=== PATIENT | female | born 1935 | race Caucasian/White ===

== ENCOUNTER 2016-08-04 15:46 | Emergency (ER) | payer MEDICAID ==
[~2016-08-04] VITALS: Ht 154.9 cm; Wt 63.5 kg
[~2016-08-04 15:46] MED LIST: ASPIR 8181 M1 PO; ASPIRIN ADULT L81 M1; ASPIRIN81 M1 PO; CIPRO500 MG PO; ENALAPRIL; FENOFIBRATE145 MG PO; GLIPIZIDE5 MG PO; GLUCOPHAGE1000 MG PO; LANTUS INS100 UNITS/ SUBQ; LISINOPRIL2.5 M1 PO; METFORMIN1000 MG PO; METFORMIN500 MG PO; MULTI VITAMINS1 TAB PO; REGULAR INSULIN SC; SYNTHROID0.05 M1; SYNTHROID0.05 MG PO
[2016-08-04 15:49] VITALS: BP 141/73
[2016-08-04] MEDS ORDERED: NACL 0.9% 1,000 ML IV SCH (15:57)
[2016-08-04] MEDS ORDERED: ACETAMINOPHEN 325 MG TAB PO ONE (16:00)
[2016-08-04] MEDS ORDERED: ACETAMINOPHEN 325 MG TAB ONE (16:01)
--- NOTE | 2016-08-04 16:17 | NUR ---
PT TO BED 4
--- NOTE | 2016-08-04 16:19 | NUR ---
DR. RICHARDS PRESENT AT BEDSIDE.
--- NOTE | 2016-08-04 16:20 | NUR ---
PATIENT PRESENTS TO ED WITH FEVER . PT STATES SHE IS HAVING BODY ACHES. DENIES N/V/D; SKIN IS PINK/WARM/DRY; AAOX4 WITH EVEN AND STEADY GAIT; LUNGS CLEAR BL; HR EVEN AND REGULAR; PT DENIES ANY FEVER, CP, SOB, OR COUGH AT THIS TIME; PATIENT STATES PAIN OF 10/10 AT THIS TIME; VSS; PATIENT POSITIONED FOR COMFORT; HOB ELEVATED; BEDRAILS UP X2; BED DOWN. ER MD MADE AWARE OF PT STATUS.
[2016-08-04] MEDS ORDERED: NACL 0.9% 1,000 ML IV ONE (17:05)
--- NOTE | 2016-08-04 17:05 | NUR ---
PT'S DAUGHTER PRESENT AT BEDSIDE.
[2016-08-04] MEDS ORDERED: cefTRIAXone 1,000 MG VIAL ONE (17:26)
--- NOTE | 2016-08-04 18:51 | NUR ---
Patient discharged with v/s stable. Written and verbal after care instructions given and explained. Patient alert, oriented and verbalized understanding of instructions. Wheel Chair Assisted with by caregiver. All questions addressed prior to discharge. ID band removed. Patient advised to follow up with PMD. Rx of TYLENOL AND AMOXICILLIN given. Patient educated on indication of medication including possible reaction and side effects. Opportunity to ask questions provided and answered.
[2016-08-04 18:57] VITALS: BP 101/56
== END 2016-08-04 18:36 | disposition home or self-care (01) ==
LOC: MED 15:46
DX: B34.9 Viral infection, unspecified (principal); E11.9 Type 2 diabetes mellitus without complications; I10 Essential (primary) hypertension; Z79.82 Long term (current) use of aspirin
CPT/HCPCS: 36415; 71010; 80053; 81001; 82150; 82553; 82948; 83605; 83690; 83880; 84484; 85025; 85379; 85610; 85730; 87040; 87086; 93005; 96365; 99285; J0696; J7030; J7060; Q0092

== ENCOUNTER 2017-01-11 15:23 | Inpatient (IN) | payer MEDICAID ==
[~2017-01-11] VITALS: Ht 157.5 cm; Wt 54.4 kg
[~2017-01-11 15:23] MED LIST changes: +ASPI81EC98 PO; -ASPIR 8181 M1 PO; -ASPIRIN ADULT L81 M1; -ASPIRIN81 M1 PO; +CIPR500T4 PO; -CIPRO500 MG PO; -ENALAPRIL; +FENO145T18 PO; -FENOFIBRATE145 MG PO; -GLIPIZIDE5 MG PO; -GLUCOPHAGE1000 MG PO; -LANTUS INS100 UNITS/ SUBQ; +LISI2.5T5 PO; -LISINOPRIL2.5 M1 PO; +METF100028 PO; -METFORMIN1000 MG PO; -METFORMIN500 MG PO; -MULTI VITAMINS1 TAB PO; -REGULAR INSULIN SC; +SYN.05 PO; -SYNTHROID0.05 M1; -SYNTHROID0.05 MG PO
[2017-01-11 15:27] VITALS: BP 95/53
--- NOTE | 2017-01-11 15:36 | NUR ---
Pt w/c assisted to bed 3.
[2017-01-11] MEDS ORDERED: CALC-1086 PO (16:09)
[2017-01-11] MEDS ORDERED: LANTUS SUBQ (16:09)
[2017-01-11] MEDS ORDERED: NACL 0.9% 1,000 ML IV SCH (16:16)
[2017-01-11] MEDS ORDERED: KETOROLAC 15 MG/ML VIAL IVP ONE (16:20)
--- NOTE | 2017-01-11 16:24 | NUR ---
PATIENT PRESENTS TO ED WITH GENERALIZED WEAKNESS AND ACHES---FULL CLEAR SPEECH, NO FACIAL ASYMMETRY, . PT STATES . DENIES N/V/D; SKIN IS PINK/WARM/DRY; AAOX4 WITH EVEN AND STEADY GAIT; LUNGS CLEAR BL; HR EVEN AND REGULAR; PT DENIES ANY FEVER, CP, SOB, OR COUGH AT THIS TIME; PATIENT STATES PAIN OF 5/10 AT THIS TIME; VSS; PATIENT POSITIONED FOR COMFORT; HOB ELEVATED; BEDRAILS UP X2; BED DOWN. ER MD MADE AWARE OF PT STATUS.
--- NOTE | 2017-01-11 16:33 | NUR ---
RT AT BEDSIDE DRAWING ABG
[2017-01-11 16:34] LABS: HEMATOCRIT 32.6 % (36-48); HEMOGLOBIN 10.9 g/dL (12.0-16.0); MEAN CORPUSCULAR HEMOGLOBIN 27 pg (27-31); MEAN CORPUSCULAR HGB CONC 33 g/dL (33-37); MEAN CORPUSCULAR VOLUME 81 fL (80-94); PLATELET COUNT (AUTO) 190 K/uL (140-450); RED BLOOD CELL COUNT(AUTO) 4.05 MIL/uL (4.20-5.40); RED CELL DISTRIBUTION WIDTH 15.2 % (11.6-13.7); WHITE BLOOD COUNT (AUTO) 18.9 K/uL (4.8-10.8)
[2017-01-11 16:53] LABS: ANION GAP 11.7 (8-16); CARBON DIOXIDE 26.7 mmol/L (21-32); CHLORIDE 99 mmol/L (98-107); CREATININE 1.8 mg/dL (0.6-1.3); EOSINOPHILS % (MANUAL) 1 % (0-4); GLUCOSE 218 mg/dL (74-106); LYMPHOCYTES % (MANUAL) 4 % (20-46); MONOCYTES % (MANUAL) 1 % (5-12); POTASSIUM 4.4 mmol/L (3.5-5.1); SODIUM SERUM 133 mmol/L (136-145); UREA NITROGEN, BLOOD 31 mg/dL (7-18)
[2017-01-11 16:56] LABS: PROTHROMBIN TIME 11.5 secs (10.8-13.4)
[2017-01-11 17:08] LABS: ASPARTATE AMINOTRANSFERASE 21 U/L (15-37); TOTAL BILIRUBIN 0.5 mg/dL (0.0-1.0)
[2017-01-11 17:23] LABS: APPEARANCE,URINE CLEAR (CLEAR); BILIRUBIN,URINE NEGATIVE (NEGATIVE); BLOOD, URINE NEGATIVE (NEGATIVE); COLOR,URINE YELLOW (YELLOW); LEUKOCYTE ESTERASE ,URINE NEGATIVE (NEGATIVE); NITRITE, URINE NEGATIVE (NEGATIVE); UGLUCOSE TRACE (NEGATIVE)
[2017-01-11 17:27] LABS: RBC,URINE 0-3 /HPF (0-5); WBC,URINE 0-3 /HPF (0-5)
[2017-01-11] MEDS ORDERED: PIPERACILLIN/TAZOBACTAM 3.375 GM in DEXTROSE 5% 50 ML IV ONE (17:40)
[2017-01-11] MEDS ORDERED: PIPERACILLIN/TAZOBACTAM 3.375 GM VIAL IV ONE (17:55)
--- NOTE | 2017-01-11 18:20 | NUR ---
PT TAKEN TO RESTROOM VIA WHEELCHAIR BY FAMILY----PT APPEARS MORE ALERT AND INTERACTIVE
--- NOTE | 2017-01-11 18:26 | NUR ---
PT RETURNED FROM RESTROOM
[2017-01-11] MEDS ORDERED: NACL 0.9% 500 ML IV ONE (18:55)
--- NOTE | 2017-01-11 19:11 | NUR ---
RESTING WITH OU CLOSED, NO S/S RESP DISTRESS---FAMILY REMAINS AT BEDSIDE PT AWAITS AVAILABLE ROOM FOR ADMISSION
--- NOTE | 2017-01-11 19:14 | NUR ---
GOT REPORT FROM KATERINA GIRON. PT. RESTING IN BED, NO S/SX OF DISTRESS AT THIS TIME.
[2017-01-11] MEDS ORDERED: MORPHINE SULFATE 2 MG/ML SYR IVP PRN (19:15)
[2017-01-11] MEDS ORDERED: HYDROcodone/APAP 7.5/325 MG 1 TAB PO PRN (19:15)
[2017-01-11] MEDS ORDERED: ONDANSETRON 4 MG/2 ML VIAL IM/IVP PRN (19:15)
[2017-01-11] MEDS ORDERED: DOCUSATE SODIUM 100 MG GELCAP PO PRN (19:15)
[2017-01-11] MEDS ORDERED: ACETAMINOPHEN 325 MG TAB PO PRN (19:15)
--- NOTE | 2017-01-11 20:00 | NUR ---
Patient will be admitted to care of DR. GUADARRAMA. Admited to TELEMETRY. Will go to room 114. Belongings list completed. Report to KATERINA AGUIRRE.
--- NOTE | 2017-01-11 20:05 | NUR ---
ADMITTED PATIENT TO TELE UNIT. PATIENT AWAKE, ALERT, ORIENTED X4. NOT S/S OF ACUTE DISTRESS NOTED, RESPIRATION EVEN AND UNLABORED, FAMILY MEMBERS AT BEDSIDE. PATIENT DENIES PAIN AT THIS TIME. FLUSHED IV WITH 10ML NS, PATENT AND INTACT. TELE MONITOR PLACED ON PATIENT. CALL LIGHT WITHIN REACH, SAFETY MEASURE ENSURED, WILL CONTINUE TO MONITOR.
[2017-01-11 20:10] VITALS: BP 141/73
[2017-01-11 20:11] LABS: MAGNESIUM 1.7 mg/dL (1.8-2.4); PHOSPHORUS 2.9 mg/dL (2.5-4.9); THYROID STIMULATING HORMONE 2.28 uIU/mL (0.34-3.74)
[2017-01-11] MEDS ORDERED: MECLIZINE 25 MG TAB PO ONE (21:10)
[2017-01-11] MEDS: CIPROFLOXACIN 250 MG TAB PO SCH (21:10)
[2017-01-11] MEDS: NACL 0.9% 1,000 ML IV SCH (21:11)
[2017-01-11] MEDS: BLOOD GLUCOSE MONITORING 1 DEV DEV FS SCH (21:13)
[2017-01-11] MEDS ORDERED: MAG SULF 2000 MG/WATER PREMIX 100 ML IV SCH (21:15)
[2017-01-11] MEDS: INSULIN LISPRO SLIDING SCALE 100 UNITS/ML VIAL SUBQ PRN (21:19)
[2017-01-11] MEDS ORDERED: FERRIC GLUCONATE 125 MG in NACL 0.9% 100 ML IV SCH ×2 (21:20→21:30)
--- NOTE | 2017-01-11 22:05 | NUR ---
DR. ARTHUR IS OKAY TO START [facility] TOMORROW
[2017-01-11] MEDS ORDERED: MECLIZINE 25 MG TAB PO PRN (23:00)
[2017-01-12] VITALS: BP 138/70
--- NOTE | 2017-01-12 00:15 | NUR ---
SECOND BAG OF 2G MAGNESIUM SULFATE STARTED, PATIENT TOLERATED WELL.
--- NOTE | 2017-01-12 02:10 | NUR ---
PATIENT SLEEPING IN BED, NO S/S OF ACUTE DISTRESS NOTED, RESPIRATION EVEN AND UNLABORED, CALL LIGHT WITHIN REACH, SAFETY MEASURE ENSURED, WILL CONTINUE TO MONITOR.
[2017-01-12 04:00] VITALS: BP 124/58
--- NOTE | 2017-01-12 04:11 | NUR ---
PATIENT SLEEPING IN BED, NO S/S OF ACUTE DISTRESS NOTED, RESPIRATION EVEN AND UNLABORED, EASY TO AROUSE, CALL LIGHT WITHIN REACH, SAFETY MEASURE ENSURED, WILL CONTINUE TO MONITOR.
[2017-01-12 06:20] LABS: T4 (THYROXINE) 6.2 ug/dL (4.5-12.0)
--- NOTE | 2017-01-12 06:30 | NUR ---
ASSISTED PATIENT TO THE RESTROOM. PATIENT VOID X1. PATIENT RESTING IN BED NOW. NO S/S OF ACUTE DISTRESS NOTED. WILL CONTINUE TO MONITOR.
[2017-01-12] MEDS: BLOOD GLUCOSE MONITORING 1 DEV DEV FS SCH ×4 (06:45→21:01)
[2017-01-12] MEDS: INSULIN LISPRO SLIDING SCALE 100 UNITS/ML VIAL SUBQ PRN ×4 (06:46→21:06)
[2017-01-12 06:50] LABS: HEMATOCRIT 26.4 % (36-48); HEMOGLOBIN 8.8 g/dL (12.0-16.0); MEAN CORPUSCULAR HEMOGLOBIN 27 pg (27-31); MEAN CORPUSCULAR HGB CONC 33 g/dL (33-37); MEAN CORPUSCULAR VOLUME 80 fL (80-94); PLATELET COUNT (AUTO) 154 K/uL (140-450); RED CELL DISTRIBUTION WIDTH 15.4 % (11.6-13.7); WHITE BLOOD COUNT (AUTO) 10.9 K/uL (4.8-10.8)
[2017-01-12] MEDS: NACL 0.9% 1,000 ML IV SCH ×2 (06:53→18:28)
[2017-01-12 07:03] LABS: ANION GAP 8.4 (8-16); CARBON DIOXIDE 25.4 mmol/L (21-32); CHLORIDE 105 mmol/L (98-107); CREATININE 1.5 mg/dL (0.6-1.3); GLUCOSE 197 mg/dL (74-106); POTASSIUM 3.8 mmol/L (3.5-5.1); SODIUM SERUM 135 mmol/L (136-145); UREA NITROGEN, BLOOD 29 mg/dL (7-18)
[2017-01-12 07:12] LABS: MAGNESIUM 3.3 mg/dL (1.8-2.4); PHOSPHORUS 2.7 mg/dL (2.5-4.9)
[2017-01-12 07:18] LABS: EOSINOPHILS % (MANUAL) 2 % (0-4); LYMPHOCYTES % (MANUAL) 10 % (20-46)
[2017-01-12 07:20] LABS: MONOCYTES % (MANUAL) 3 % (5-12)
--- NOTE | 2017-01-12 07:45 | NUR ---
ENDORSED PLAN OF CARE TO DAY RN. PATIENT RESTING IN BED IN STABLE CONDITION, RESPIRATION EVEN AND UNLABORED. NO S/S OF ACUTE DISTRESS NOTED.
--- NOTE | 2017-01-12 07:46 | NUR ---
RECEIVED PT FROM BRIDGETTE BORGES AT BEDSIDE. PT IS SITTING UP AT EDGE OF BED. EDUCATED PT TO CALL NURSE FOR HELP WHEN GOING TO BATHROOM. PT VERBALIZED UNDERSTANDING. PT IS A&OX3. PT HAS IV ON L AC 20G RUNNING NS@86. PT DENIES PAIN. CALL LIGHT WITHIN REACH. WILL CONTINUE TO MONITOR.
[2017-01-12 08:00] VITALS: BP 111/61
[2017-01-12] MEDS ORDERED: ASPIRIN 81 MG TAB.CHEW PO ONE (09:00)
[2017-01-12] MEDS ORDERED: INSULIN GLARGINE SUBQ SCH (09:00)
[2017-01-12] MEDS ORDERED: FERRIC GLUCONATE 125 MG in NACL 0.9% 100 ML IV SCH (09:00)
--- NOTE | 2017-01-12 09:30 | NUR ---
PT IS RESTING COMFORTABLY IN BED. NO DISTRESS NOTED. CALL LIGHT WITHIN REACH. WILL CONTINUE TO MONITOR.
[2017-01-12] MEDS: FENOFIBRATE 48 MG TAB PO SCH (09:41)
[2017-01-12] MEDS: ATORVASTATIN 20 MG TAB PO SCH (09:42)
[2017-01-12] MEDS: LISINOPRIL 5 MG TAB PO SCH (09:42)
--- NOTE | 2017-01-12 09:53 | NUR ---
PATIENT HAS BEEN SCREENED AND CATEGORIZED HIGH NUTRITION RISK. PATIENT WILL BE SEEN WITHIN 1-2 DAYS OF ADMISSION. 01/12/17-01/13/[address]
--- NOTE | 2017-01-12 11:50 | NUR ---
BS CHECKED. VS CHECKED. PT IN STABLE CONDITION. FAMILY AT BEDSIDE. CALL LIGHT WITHIN REACH. WILL CONTINUE TO MONITOR.
[2017-01-12 12:00] VITALS: BP 111/62
--- NOTE | 2017-01-12 13:30 | NUR ---
PT IS RESTING COMFORTABLY IN BED. FAMILY AT BEDSIDE. CALL LIGHT WITHIN REACH. WILL CONTINUE TO MONITOR.
[2017-01-12 15:16] LABS: FERRITIN 74 ng/mL (15-150); TRANSFERRIN 229 mg/dL (200-370)
--- NOTE | 2017-01-12 15:30 | NUR ---
PT TOOK A WALK IN HALLWAY. TOLERATED WELL. CALL LIGHT WITHIN REACH. WILL CONTINUE TO MONITOR.
[2017-01-12 16:00] VITALS: BP 141/71
--- NOTE | 2017-01-12 16:17 | NUR ---
01/12/17 RD INITIAL ASSESSMENT COMPLETED PLEASE REFER TO NUTRITION ASSESSMENT UNDER CARE ACTIVITY FOR ESTIMATED NUTRITIONAL NEEDS. RD RECOMMENDATIONS: 1. CONTINUE CCHO 60 GM TOLERATED -NOTE PT WITH VERY GOOD APPETITE, FINISHING 90-100% OF HER MEALS TODAY. 2. RD PROVIDED VERBAL DM DIET EDUCATION TO PTS FAMILY MEMBERS. 3. RD WILL F/U 7 DAYS; LOW RISK. JOSE HOLLINGSWORTH, RD
--- NOTE | 2017-01-12 17:31 | NUR ---
FAMILY AT BEDSIDE. PT IN STABLE CONDITION. CALL LIGHT WITHIN REACH. WILL CONTINUE TO MONITOR.
--- NOTE | 2017-01-12 19:21 | NUR ---
ENDORSED CARE OF PT TO PAULA BORGES AT BEDSIDE. PT IN STABLE CONDITION.
--- NOTE | 2017-01-12 19:22 | NUR ---
RECEIVED PATIENT REPORT AT BEDSIDE. PATIENT AWAKE, ALERT, AND ORIENTED. NO SIGNS AND SYMPTOMS OF DISTRESS NOTED. NO COMPLAINTS OF PAIN AT THIS TIME. PATIENT'S FAMILY IS PRESENT AT BEDSIDE. IV SITE NOTED AT LEFT AC. IVF INFUSING WELL. WILL CONTINUE TO MONITOR.
[2017-01-12 20:00] VITALS: BP 150/77
[2017-01-12] MEDS: CIPROFLOXACIN 250 MG TAB PO SCH (20:57)
--- NOTE | 2017-01-12 21:00 | NUR ---
ASSISTED PATIENT TO THE RESTROOM. PATIENT VOIDED. NO SIGNS AND SYMPTOMS OF DISTRESS NOTED.
--- NOTE | 2017-01-12 23:39 | NUR ---
CHECKED ON PATIENT. PATIENT IS ASLEEP. NO SIGNS AND SYMPTOMS OF DISTRESS NOTED. WILL CONTINUE TO MONITOR.
[2017-01-13] VITALS: BP 146/75
--- NOTE | 2017-01-13 03:58 | NUR ---
CHECKED ON PATIENT. PATIENT IS ASLEEP. NO SIGNS AND SYMPTOMS OF DISTRESS NOTED. WILL CONTINUE TO MONITOR
[2017-01-13 04:00] VITALS: BP 139/62
[2017-01-13] MEDS: NACL 0.9% 1,000 ML IV SCH ×2 (06:09→18:14)
[2017-01-13] MEDS: BLOOD GLUCOSE MONITORING 1 DEV DEV FS SCH ×4 (06:55→21:20)
[2017-01-13] MEDS: INSULIN LISPRO SLIDING SCALE 100 UNITS/ML VIAL SUBQ PRN ×4 (06:56→21:26)
[2017-01-13 07:20] LABS: BASOPHILS % (AUTO) 0.3 % (0.0-2.0); EOSINOPHILS # (AUTO) 0.1 K/uL (0-0.4); EOSINOPHILS % (AUTO) 2.1 % (0.0-4.0); HEMATOCRIT 29.6 % (36-48); HEMOGLOBIN 9.6 g/dL (12.0-16.0); LYMPHOCYTES # (AUTO) 1.1 K/uL (2.5-16.5); LYMPHOCYTES % (AUTO) 17.7 % (20.5-51.1); MEAN CORPUSCULAR HEMOGLOBIN 26 pg (27-31); MEAN CORPUSCULAR HGB CONC 33 g/dL (33-37); MEAN CORPUSCULAR VOLUME 80 fL (80-94); MONOCYTES # (AUTO) 0.4 K/uL (0.8-1.0); MONOCYTES % (AUTO) 6.1 % (1.7-9.3); NEUTROPHILS # (AUTO) 4.6 K/uL (1.8-7.7); NEUTROPHILS % (AUTO) 73.8 % (42.2-75.2); PLATELET COUNT (AUTO) 171 K/uL (140-450); RED BLOOD CELL COUNT(AUTO) 3.72 MIL/uL (4.20-5.40); RED CELL DISTRIBUTION WIDTH 15.6 % (11.6-13.7); WHITE BLOOD COUNT (AUTO) 6.2 K/uL (4.8-10.8)
--- NOTE | 2017-01-13 07:26 | NUR ---
PATIENT REPORT GIVEN AT BEDSIDE TO MORNING NURSE. PATIENT IS ASLEEP. NO SIGNS AND SYMPTOMS OF DISTRESS NOTED. PATIENT IS IN STABLE CONDITION
--- NOTE | 2017-01-13 07:27 | NUR ---
RECEIVED CARE OF PT FROM PAULA BORGES AT BEDSIDE. PT IS SLEEPING. PT HAS IV ON L AC 20 G RUNNING NS@86. BED ALARM ON. NO DISTRESS NOTED. CALL LIGHT WITHIN REACH. WILL CONTINUE TO MONITOR.
[2017-01-13 07:35] LABS: ANION GAP 9.9 (8-16); CHLORIDE 106 mmol/L (98-107); CREATININE 1.3 mg/dL (0.6-1.3); GLUCOSE 176 mg/dL (74-106); POTASSIUM 3.9 mmol/L (3.5-5.1); SODIUM SERUM 138 mmol/L (136-145); UREA NITROGEN, BLOOD 21 mg/dL (7-18)
[2017-01-13 07:40] LABS: MAGNESIUM 2.3 mg/dL (1.8-2.4); PHOSPHORUS 2.9 mg/dL (2.5-4.9)
[2017-01-13 08:00] VITALS: BP 140/72
[2017-01-13] MEDS ORDERED: FERRIC GLUCONATE 125 MG in NACL 0.9% 100 ML IV ONE (09:00)
--- NOTE | 2017-01-13 09:00 | NUR ---
PT IN STABLE CONDITION. CALL LIGHT WITHIN REACH. WILL CONTINUE TO MONITOR.
[2017-01-13] MEDS: LISINOPRIL 5 MG TAB PO SCH (09:56)
[2017-01-13] MEDS: ATORVASTATIN 20 MG TAB PO SCH (09:57)
[2017-01-13] MEDS: FENOFIBRATE 48 MG TAB PO SCH (09:57)
--- NOTE | 2017-01-13 11:55 | NUR ---
PT TOOK A WALK ACCOMPANIED BY NURSE. TOLERATED WELL. BACK TO CHAIR. CALL LIGHT WITHIN REACH. EDUCATED PT TO CALL FOR HELP. WILL CONTINUE TO MONITOR.
[2017-01-13 12:00] VITALS: BP 157/78
[2017-01-13] MEDS ORDERED: FERRIC GLUCONATE 125 MG in NACL 0.9% 100 ML IV SCH (13:00)
--- NOTE | 2017-01-13 14:25 | NUR ---
FAMILY AT BEDSIDE. NO DISTRESS NOTED IN PT. CALL LIGHT WITHIN REACH. WILL CONTINUE TO MONITOR.
[2017-01-13 16:00] VITALS: BP 150/81
--- NOTE | 2017-01-13 16:00 | NUR ---
VS TAKEN. FAMILY AT BEDSIDE. CALL LIGHT WITHIN REACH. WILL CONTINUE TO MONITOR.
--- NOTE | 2017-01-13 18:50 | NUR ---
HELPED PT TO BATHROOM. PT TOLERATED WELL. CALL LIGHT WITHIN REACH. WILL CONTINUE TO MONITOR.
--- NOTE | 2017-01-13 19:30 | NUR ---
ENDORSED CARE TO KRYSTLE BORGES AT BEDSIDE. PT IN STABLE CONDITION.
--- NOTE | 2017-01-13 19:33 | NUR ---
RECEIVED REPORT FROM AM RN. PT SITTING IN CHAIR NEXT TO BED. NO S/S OF ACUTE DISTRESS. AAOX4. PT DENIES PAIN. IV SITE PATENT AND INTACT. CALL LIGHT WITHIN REACH. SAFETY MEASURES ENSURED. WILL CONTINUE TO MONITOR.
[2017-01-13 20:00] VITALS: BP 162/75
[2017-01-13] MEDS: CIPROFLOXACIN 250 MG TAB PO SCH (21:20)
--- NOTE | 2017-01-13 21:22 | NUR ---
PM MEDICATIONS GIVEN WITH EDUCATION. PT VERBALIZED UNDERSTANDING. WILL CONTINUE TO MONITOR.
--- NOTE | 2017-01-13 22:45 | NUR ---
PT SLEEPING IN BED. NO S/S OF ACUTE DISTRESS. CALL LIGHT WITHIN REACH. SAFETY MEASURES ENSURED. WILL CONTINUE TO MONITOR.
[2017-01-14] VITALS: BP 144/84
--- NOTE | 2017-01-14 01:12 | NUR ---
PT SLEEPING IN BED. NO S/S OF ACUTE DISTRESS. WILL CONTINUE TO MONITOR.
--- NOTE | 2017-01-14 02:59 | NUR ---
PT SLEEPING IN BED. NO S/S OF ACUTE DISTRESS. WILL CONTINUE TO MONITOR.
--- NOTE | 2017-01-14 03:43 | NUR ---
RECEIVED REPORT FROM KRYSTLE BORGES.PT IS SLEEPING W/O S/S OF ANY DISTRESS.WILL CONTINUE MONITORING.
--- NOTE | 2017-01-14 03:47 | NUR ---
ENDORSED PLAN OF CARE TO FURNITURE REFINISHER FAIRY. PT STABLE.
[2017-01-14 04:00] VITALS: BP 140/77
--- NOTE | 2017-01-14 04:48 | NUR ---
RESTING IN BED HR IS SR/SA.VS STABLE.DENIED ANY PAIN.
[2017-01-14 06:30] LABS: BASOPHILS # (AUTO) 0.1 K/uL (0.00-0.22); BASOPHILS % (AUTO) 2.6 % (0.0-2.0); EOSINOPHILS # (AUTO) 0.1 K/uL (0-0.4); HEMATOCRIT 30.4 % (36-48); HEMOGLOBIN 9.7 g/dL (12.0-16.0); LYMPHOCYTES # (AUTO) 1.2 K/uL (2.5-16.5); LYMPHOCYTES % (AUTO) 29.4 % (20.5-51.1); MEAN CORPUSCULAR HEMOGLOBIN 26 pg (27-31); MEAN CORPUSCULAR HGB CONC 32 g/dL (33-37); MEAN CORPUSCULAR VOLUME 81 fL (80-94); MONOCYTES # (AUTO) 0.3 K/uL (0.8-1.0); MONOCYTES % (AUTO) 6.4 % (1.7-9.3); NEUTROPHILS # (AUTO) 2.5 K/uL (1.8-7.7); NEUTROPHILS % (AUTO) 59.6 % (42.2-75.2); PLATELET COUNT (AUTO) 196 K/uL (140-450); RED BLOOD CELL COUNT(AUTO) 3.74 MIL/uL (4.20-5.40); RED CELL DISTRIBUTION WIDTH 15.3 % (11.6-13.7); WHITE BLOOD COUNT (AUTO) 4.2 K/uL (4.8-10.8)
[2017-01-14] MEDS: BLOOD GLUCOSE MONITORING 1 DEV DEV FS SCH ×2 (06:30→11:43)
[2017-01-14 06:45] LABS: ANION GAP 13.1 (8-16); CARBON DIOXIDE 24.9 mmol/L (21-32); CHLORIDE 106 mmol/L (98-107); CREATININE 1.2 mg/dL (0.6-1.3); GLUCOSE 138 mg/dL (74-106); SODIUM SERUM 140 mmol/L (136-145); UREA NITROGEN, BLOOD 13 mg/dL (7-18)
--- NOTE | 2017-01-14 06:45 | NUR ---
SLEPT WELL.UE=020.NO COVERAGE NEEDED.CONDITION STABLE AT PRESENT TIME.
[2017-01-14 06:47] LABS: MAGNESIUM 1.8 mg/dL (1.8-2.4); PHOSPHORUS 3.2 mg/dL (2.5-4.9)
--- NOTE | 2017-01-14 07:20 | NUR ---
REPORT RESUMED FROM NIGHT RN FOR CONTINUITY OF CARE. IV DISLODGED, WILL REINSERT. PATIENT IS AWAKE, ORIENTED TO PERSON, PLACE, DATE AND TIME. SKIN WARM TO TOUCH WNL, TOENAILS WNL, NO EDEMA, NO HAIR GROWTH AND +2 BILATERAL PEDAL PULSES. URINE AND BOWEL CONTINENT, ABLE TO AMBULATE TO THE RESTROOM WITH MINIMAL ASSISTANCE. CALL LIGHT WITH IN REACH. WILL CONTINUE TO MONITOR.
[2017-01-14 08:00] VITALS: BP 136/87
[2017-01-14] MEDS: LISINOPRIL 5 MG TAB PO SCH (10:09)
[2017-01-14] MEDS: FENOFIBRATE 48 MG TAB PO SCH (10:09)
--- NOTE | 2017-01-14 11:20 | NUR ---
CALLED [facility] AND SPOKE WITH SRAVANTHI, . SHE SAID TO FAX REVIEW TO HER ALONG WITH THE ORDER FOR HOME HEALTH TO [phone]. FAXED INITIAL REVIEW TO HER. CALLED LISA AND SPOKE WITH [employer], [phone]. FAXED INITIAL REVIEW TO HER AT [phone].
[2017-01-14] MEDS: INSULIN LISPRO SLIDING SCALE 100 UNITS/ML VIAL SUBQ PRN (11:47)
[2017-01-14] MEDS: ATORVASTATIN 20 MG TAB PO SCH (11:48)
[2017-01-14 12:00] VITALS: BP 140/85
[2017-01-14] MEDS ORDERED: LISI-424 PO (12:54)
[2017-01-14] MEDS ORDERED: TRI48 PO (12:54)
[2017-01-14] MEDS ORDERED: ATOR20TA40 PO (12:54)
[2017-01-14] MEDS ORDERED: INSU100S22 SUBQ (13:01)
[2017-01-14] MEDS ORDERED: FERR324T11 PO (13:06)
--- NOTE | 2017-01-14 15:23 | NUR ---
RECEIVED A CALL FROM SRAVANTHI [place]. THE HOME HEALTH WILL BE [facility] [phone] . SHE SAID THAT THE PATIENT GOT A WALKER LAST YEAR. THEN RECEIVED A CALL FROM JOHN Levine FROM [employer] AND SHE SAID THEY WILL SEND A FWW TO THE HOUSE. FWW FROM [facility]. I SPOKE WITH GENI AT [facility] AND SHE IS AWARE OF THE HOME HEALTH AND WALKER.
--- NOTE | 2017-01-14 15:26 | NUR ---
PHYSICAL THERAPY CO-SIGN The Physical Therapy Progress Notes documented by [employer] have been reviewed. I CONCUR W/RAPID EXTRACTOR OPERATOR NOTE, CONT PER TX PLAN Reviewed/Co-Signed by: Luzmaria Palacios PT Documentation Done by: RODRIGUE OLIVER RAPID EXTRACTOR OPERATOR Addendum: 01/14/17 at 1527 by Luzmaria Palacios PT Amended: Links added.
[2017-01-14 16:00] VITALS: BP 142/84
--- NOTE | 2017-01-14 16:25 | NUR ---
D/C PATIENT PER WHEELCHAIR ACCOMPANIED BY DAUGHTER LEONILA SANCHEZ VIA PRIVATE AUTO IN STABLE CONDITION. D/C INSTRUCTION GIVEN. ID BAND REMOVED. IV D/C, TIP INTACT.
== END 2017-01-14 16:25 | disposition home or self-care (01) | DRG 48 ==
LOC: MED 15:23 → MTU 19:23
PROVIDERS: ADMIT Family Medicine; ATTEND Family Medicine
DX: G90.9 Disorder of the autonomic nervous system, unspecified (principal); N17.0 Acute kidney failure with tubular necrosis; D68.59 Other primary thrombophilia; E11.51 Type 2 diabetes mellitus with diabetic peripheral angiopathy without gangrene; E11.65 Type 2 diabetes mellitus with hyperglycemia; E87.1 Hypo-osmolality and hyponatremia; E83.42 Hypomagnesemia; E03.9 Hypothyroidism, unspecified; E86.0 Dehydration; D50.9 Iron deficiency anemia, unspecified; Z90.49 Acquired absence of other specified parts of digestive tract; Z83.3 Family history of diabetes mellitus; Z79.4 Long term (current) use of insulin
CPT/HCPCS: 36415; 36600; 70450; 71010; 80048; 80053; 81001; 82550; 82607; 82728; 82746; 82803; 82948; 83036; 83540; 83605; 83735; 83880; 84100; 84436; 84443; 84479; 84484; 85025; 85045; 85610; 85730; 87040; 87081; 87086; 93005; 93880; 93925; 93970; 96361; 96365; 96375; 97110; 97116; 97530; 99291; C1758; J1815; J1885; J2543; J2916; J3475; J7030; J7060; Q0092

== ENCOUNTER 2017-08-17 19:54 | Emergency (ER) | payer MEDICAID ==
[~2017-08-17] VITALS: Ht 152.4 cm; Wt 63.5 kg
[~2017-08-17 19:54] MED LIST changes: -ASPI81EC98 PO; +ATOR20TA40 PO; +CALC-1086 PO; -CIPR500T4 PO; -FENO145T18 PO; +FENO145T36 PO; +FERR324T11 PO; +INSU100S22 SUBQ; -METF100028 PO; -SYN.05 PO
[2017-08-17 19:59] VITALS: BP 151/65
--- NOTE | 2017-08-17 20:07 | NUR ---
PATIENT BIB WHEELCHAIR TO ER BED 12.
[2017-08-17] MEDS ORDERED: NACL 0.9% 1,000 ML IV ONE (20:15)
--- NOTE | 2017-08-17 20:25 | NUR ---
82Y/F PT. BIB FAMILY TO ED WITH C/O GENERALIZED WEAKNESS AND HIGH BS X 2 DAYS. FAMILY STATES CHECK BS READ HIGH X2. HX. HTN, DM, HYPOTHYROIDISM. AAO X4, BELGIAN SPEAKING, PT. APPEARS WEAKNESS AT THIS TIME, AMBULATED WITH W/C ASSIST. RESPIRATIONS ROOM AIR, EVEN AND UNLABORED, BL LUNG CLEAR. NO C/O PAIN AT THIS TIME. DR. KAREY SECHRIST EVALUATED PT. AT BEDSIDE.
[2017-08-17 20:47] LABS: BASOPHILS % (AUTO) 0.5 % (0.0-2.0); EOSINOPHILS # (AUTO) 0.1 K/uL (0-0.4); EOSINOPHILS % (AUTO) 0.8 % (0.0-4.0); HEMATOCRIT 34.4 % (36-48); HEMOGLOBIN 11.3 g/dL (12.0-16.0); LYMPHOCYTES % (AUTO) 16.1 % (20.5-51.1); MEAN CORPUSCULAR HEMOGLOBIN 27 pg (27-31); MEAN CORPUSCULAR HGB CONC 33 g/dL (33-37); MEAN CORPUSCULAR VOLUME 82.9 fL (80-94); MONOCYTES # (AUTO) 0.3 K/uL (0.8-1.0); MONOCYTES % (AUTO) 5.4 % (1.7-9.3); NEUTROPHILS % (AUTO) 77.2 % (42.2-75.2); PLATELET COUNT (AUTO) 251 K/uL (140-450); RED BLOOD CELL COUNT(AUTO) 4.15 MIL/uL (4.20-5.40); RED CELL DISTRIBUTION WIDTH 13.2 % (11.6-13.7); WHITE BLOOD COUNT (AUTO) 6.4 K/uL (4.8-10.8)
--- NOTE | 2017-08-17 20:55 | NUR ---
PT.STATES HAVING HEADACHE, CHECK BP 206/89 P80. MADE AWARE OF PT. STATUS.
[2017-08-17 21:25] LABS: ANION GAP 12.1 (8-16); ASPARTATE AMINOTRANSFERASE 11 U/L (15-37); CARBON DIOXIDE 28.4 mmol/L (21-32); CHLORIDE 91 mmol/L (98-107); CREATININE 2.1 mg/dL (0.6-1.3); LIPASE 127 U/L (73-393); MAGNESIUM 1.9 mg/dL (1.8-2.4); PHOSPHORUS 3.2 mg/dL (2.5-4.9); POTASSIUM 4.5 mmol/L (3.5-5.1); SODIUM SERUM 127 mmol/L (136-145); THYROID STIMULATING HORMONE 4.36 uIU/mL (0.34-3.74); TOTAL BILIRUBIN 0.3 mg/dL (0.0-1.0); UREA NITROGEN, BLOOD 36 mg/dL (7-18)
[2017-08-17 21:28] LABS: GLUCOSE 649 mg/dL (74-106)
[2017-08-17] MEDS ORDERED: ACETAMINOPHEN 650 MG/20.3 ML UDC PO ONE (21:35)
[2017-08-17] MEDS ORDERED: INSULIN LANTUS 100 UNITS/ML 10 ML VIAL SUBQ ONE (21:35)
[2017-08-17] MEDS ORDERED: INSULIN REGULAR, HUMAN 100 UNIT/ML VIAL IV ONE (21:35)
--- NOTE | 2017-08-17 22:45 | NUR ---
Patient appears to be resting comfortably in bed. Vital Signs within normal limits. Respirations even and unlabored.
[2017-08-17 23:01] LABS: APPEARANCE,URINE HAZY (CLEAR); BILIRUBIN,URINE NEGATIVE (NEGATIVE); BLOOD, URINE NEGATIVE (NEGATIVE); COLOR,URINE YELLOW (YELLOW); LEUKOCYTE ESTERASE ,URINE NEGATIVE (NEGATIVE); NITRITE, URINE NEGATIVE (NEGATIVE); PH,URINE 7.5 (5.0-9.0); UGLUCOSE 3+ (NEGATIVE)
[2017-08-17 23:08] LABS: RBC,URINE 0-5 (RARE) /HPF (0-5)
--- NOTE | 2017-08-18 00:32 | NUR ---
Patient discharged with v/s stable. Written and verbal after care instructions given and explained. Patient verbalized understanding. Ambulatory with steady gait. All questions addressed prior to discharge. Advised to follow up with PMD.
[2017-08-18 00:35] VITALS: BP 177/80
== END 2017-08-18 00:32 | disposition home or self-care (01) ==
LOC: MED 19:54
DX: E11.65 Type 2 diabetes mellitus with hyperglycemia (principal); I12.9 Hypertensive chronic kidney disease with stage 1 through stage 4 chronic kidney disease, or unspecified chronic kidney disease; E11.22 Type 2 diabetes mellitus with diabetic chronic kidney disease; N18.9 Chronic kidney disease, unspecified; E03.9 Hypothyroidism, unspecified; R94.31 Abnormal electrocardiogram [ECG] [EKG]; Z79.899 Other long term (current) drug therapy
CPT/HCPCS: 36415; 36600; 71045; 80053; 81001; 81025; 82009; 82803; 82948; 83605; 83690; 83735; 84100; 84439; 84443; 84481; 84484; 85025; 87086; 93005; 96360; 96372; 99285; J1815; J7030; Q0092